=== PATIENT | female | born 1970 | race Asian ===

== ENCOUNTER 2025-05-13 08:32 | Day surgery (SDC) | payer OTHER ==
[2025-05-10 17:23] VITALS: BMI 24.7
[2025-05-13 11:00] VITALS: RESP 18; TEMP 97
[2025-05-13 11:18] VITALS: BP 130/78; PULSE 72
== END 2025-05-13 11:18 | disposition home or self-care (01) ==
LOC: FASU-ENDO 08:32
PROVIDERS: ATTEND Internal Medicine Gastroenterology
PROC: 0DBM8ZX Excision of Descending Colon, Via Natural or Artificial Opening Endoscopic, Diagnostic (ICD-10-PCS; principal; 2025-05-13 10:24)
DX: D12.4 Benign neoplasm of descending colon (principal); K64.1 Second degree hemorrhoids; K64.9 Unspecified hemorrhoids
CPT/HCPCS: 88305-TC